=== PATIENT | female | born 1965 | race Caucasian/White ===

== ENCOUNTER → 2018-05-11 | Day surgery (SDC) | payer OTHER ==
[~2018-05-11] VITALS: Ht 157.5 cm; Wt 88.3 kg
[~2018-05-11] MED LIST: ACETAMINOPHEN/HYDROcodone 325 MG/5 MG TAB PO PRN; ALBU6.7H INH; BUPIVACAINE/EPINEPHRINE 0.5% PF 30 ML VIAL ONE; CHLORHEXIDINE GLUCONATE 2 % 1 PACK (2 CLOTHS) TOPICAL PRN; DEXAMETHASONE SOD PHOS 4 MG/ML VIAL IV ONE; DO NOT ADM ANY ANTICOAGULANT DRUGS PRN; HEPARIN SODIUM - IV 10,000 UNITS/10 ML VIAL ONE; HYDR25TA5 PO; KETOROLAC TROMETHAMINE 30 MG/ML (IVP) VIAL IVP PRN; LACTATED RINGER'S 1000 ML IV PRN; METO50TA PO; METOPROLOL TARTRATE 25 MG TAB PO PRN; MIDAZOLAM HCL 2 MG/2 ML VIAL ONE; MORPHINE SULFATE 8 MG/ML INJ IV PUSH PRN; NALOXONE HCL 0.4 MG/ML AMP IV PUSH PRN; ONDANSETRON HCL 4 MG/2 ML VIAL IV ONE; ONDANSETRON ODT 4 MG TAB PO PRN; PAXI10TA8 PO; PAXI20TA PO; POVIDONE IODINE 5% (ANTISEPSIS KIT) 4 APPLICATIONS EACH NARE PRN; PRED50 PO; PROPOFOL 200 MG/20 ML AMP IV ONE; Post-op Orders (for Pharmacy) XX ONE; ROCURONIUM INJ 50 MG/5 ML SYRINGE IV PUSH ONE; SODIUM CHLORID 0.9% 500 ML IV PRN; ceFAZolin 2 GM/DEX PREMIX 50 ML IV SCH; ePHEDrine/NS 25 MG/5 ML SYRINGE IV ONE
[2018-05-11 14:09] LABS: BASOPHIL % 0.4 % (0.0-2.0); EOSINOPHIL # 0.1 TH/MM3 (0-0.4); EOSINOPHIL % 1.7 % (0.0-4.0); HEMOGLOBIN 13.2 GM/DL (11.6-15.3); LYMPH % 31.9 % (9.0-44.0); LYMPHOCYTE # 2.1 TH/MM3 (1.0-4.8); MEAN CELL VOLUME 92.2 FL (80.0-100.0); MEAN CORPUSCULAR HEMOGLOBIN 31.3 PG (27.0-34.0); MEAN CORPUSCULAR HGB CONC 33.9 % (32.0-36.0); MEAN PLATELET VOLUME 7.9 FL (7.0-11.0); MONO % 6.7 % (0.0-8.0); MONOCYTE # 0.5 TH/MM3 (0-0.9); NEUT % 59.3 % (16.0-70.0); PLATELET COUNT 249 TH/MM3 (150-450); RED BLOOD COUNT 4.23 MIL/MM3 (4.00-5.30); RED CELL DISTRIBUTION WIDTH 13.2 % (11.6-17.2); WHITE BLOOD COUNT 6.7 TH/MM3 (4.0-11.0)
--- NOTE | 2018-05-11 16:48 | RADRPT ---
EXAM DATE: 05/11/2018 4:41 PM EDT AGE/SEX: 52 years / Female INDICATIONS: Post op port placement. CLINICAL DATA: This is the patient's subsequent encounter. Patient reports that signs and symptoms h ave been present for 1 day and indicates a pain score of 3/10. MEDICAL/SURGICAL HISTORY: None. None. COMPARISON: [facility] – [place], CHEST SINGLE AP, 11/25/2016. . FINDINGS: A single AP view of the chest demonstrates the lungs to be symmetrically aerated without evidence of mass, infiltrate or effusion. The cardiomediastinal contours are unremarkable. Osseous structures a re intact. The Fuwiex-k-Sfrq is in excellent position. The exam is stable compared to a prior dated 1 01/26/2016. CONCLUSION: Itptnf-b-Veyw in good position. No acute cardiopulmonary findings. Electronically signed by: Missael Jaimes MD 05/11/2018 4:46 PM EDT
--- NOTE | 2018-05-11 16:56 | MP ---
cc: Mateo Fall MD DATE OF OPERATION: 05/11/2018 PREOPERATIVE DIAGNOSIS: Recurrent left breast cancer. POSTOPERATIVE DIAGNOSIS: Recurrent left breast cancer. PROCEDURE PERFORMED: 1. Attempted right subclavian [id number]-A-[id number]. 2. Right internal jugular Infusaport with intraoperative fluoroscopy. SURGEON: Mateo Fall MD ANESTHESIA: General LMA. COMPLICATIONS: None. INDICATIONS: Ms. Hankins is a very pleasant 52-year-old female who had a mass in her reconstructed left breast. She underwent workup and this was found to be a recurrent breast cancer. Many years ago, she had a DCIS of the left breast. She underwent a wide local excision of this recurrence. Because it was invading the muscle, it was recommended she have chemotherapy. Risks and benefits of Infusaport placement was discussed with her, and she was agreeable. DETAILS OF PROCEDURE: The patient was identified, brought to the operating room, placed supine on the operating table. After adequate general anesthesia was achieved with LMA, the anterior chest and neck was prepped and draped in standard surgical fashion. A 0.25% Marcaine was injected in the skin and subcutaneous tissue in the right subclavian area. An 18-gauge needle was then used to locate the right subclavian vein. On multiple attempts, we hit the right subclavian artery. We tried a more lateral approach, more medial approach, more anterior approach and more deep approach and 3 of the 4 sticks hit the artery. At this point, I felt further sticking in the right subclavian area was not warranted as the majority of sticks ended up only in the artery. Attention was now directed to the right internal jugular area. The 2 heads of the sternocleidomastoid were identified. The small 25-gauge local needle was used to localize the right internal jugular vein. Once it was identified, the 18-gauge needle was then used to follow the same path. We immediately hit the vein. Guidewire was introduced and followed with direct fluoroscopy down to the level of superior vena cava. The introducer was then used to dilate the tract. The guidewire was then removed. The catheter was then advanced to the level of the inferior vena cava. Next, the subcutaneous pocket was fashioned in the right anterior chest after anesthetizing the skin and subcutaneous tissue with 0.25% Marcaine. The tract was then anesthetized with local anesthetic and the catheter was tunneled down to the right subclavian area. The fluoroscopy was then used to back the catheter up to where it was back in the superior vena cava, adjacent to the right atrium. The catheter was then attached to the port with a locking device. The port was tested and found to have excellent blood return, easy ability to flush. The port was then placed into the subcutaneous pocket and held in place with a 2-0 Prolene suture. Additional local anesthetic was injected. The incision was then closed in 2 layers using a 4-0 Vicryl. The puncture site in the right neck was closed with Steri-Strips. Sterile dressings were applied and the patient was awakened and brought to the recovery room in stable condition. A chest x-ray will be obtained in the recovery room. Mateo Neli Fall MD MWAlexis/PAYAL , 04:27 PM , 04:56 PM
[2018-05-11 17:55] VITALS: BP 158/80; PULSE 60; RESP 16; TEMP 97.7; O2SAT 97
--- NOTE | 2018-05-12 09:36 | EKG ---
Date Performed: 05/11/2018 Time Performed: 13:15:15 PTAGE: 52 years EKG: SINUS BRADYCARDIA BORDERLINE ECG NO PREVIOUS TRACING DOCTOR: Hasmukh Ariza Interpretating Date/Time 05/12/2018 09:33:21
== END | disposition home or self-care (01) ==
LOC: HSDC 12:32
PROVIDERS: ATTEND Surgery Trauma Surgery
DX: C50.912 Malignant neoplasm of unspecified site of left female breast (principal)
CPT/HCPCS: 00532; 36561; 71045; 76000; 85025; 93005; C1788; J0690; J1100; J1644; J2250; J2405; J3010; J7120